=== PATIENT | male | born 1975 | race African-American/Black ===

== ENCOUNTER 2020-12-21 15:48 | Emergency (ER) | payer OTHER ==
[~2020-12-21] VITALS: Ht 185.4 cm; Wt 84.0 kg
[2020-12-21 15:58] VITALS: BP 145/93
[2020-12-21] MEDS ORDERED: AMOX1TAB61 PO (16:08)
[2020-12-21] MEDS ORDERED: HYDR-2155 PO (16:08)
--- NOTE | 2020-12-21 16:12 | PHYS DOC ---
General Adult EDM: Chief Complaint: DENTAL PROBLEM HPI: HPI: Patient is a 45-year-old male who presents to the ER for dental pain. Patient reports that he does not have a dentist. He denies any trouble breathing, trouble swallowing, fevers. He rates his pain 7 out of 10. He has been using salt water gargles and Orajel without any relief. (DEEPAK VALADEZ APRN) Review of Systems: Review of Systems: 14 body systems of the review of systems have been reviewed. See HPI for pertinent positive and negative responses, otherwise all other systems are negative, nonpertinent or noncontributory (DEEPAK VALADEZ APRN) Physical Exam: PE: Constitutional: Well developed, well nourished, no acute distress, non-toxic appearance. [] HENT: Normocephalic, atraumatic, bilateral external ears normal, oropharynx tati st, no oral exudates, nose normal, uvula midline, no trismus, several broken teeth and dental caries, no abscess noted, mild upper swelling of gums [] Eyes: PERRL, EOMI, conjunctiva normal, no discharge. [] Neck: Normal range of motion, no stridor Cardiovascular: Normal peripheral perfusion Lungs & Thorax: Normal work of breathing, no tachypnea Abdomen: Bowel sounds normal, soft, no tenderness, no masses, no pulsatile masses. [] Skin: Warm, dry, no erythema, no rash. [] Back: Normal range of motion Extremities: No tenderness, no cyanosis, no clubbing, ROM intact, no edema. [] Neurologic: Alert and oriented X 3, normal motor function, normal sensory function, no focal deficits noted. [] Psychologic: Affect normal, judgement normal, mood normal. [] (DEEPAK VALADEZ APRN) EKG: EKG: [] (DEEPAK VALADEZ APRN) Radiology/Procedures: Radiology/Procedures: [] (DEEPAK VALADEZ APRN) Heart Score: C/O Chest Pain: No Risk Factors: Risk Factors: DM, Current or recent (<one month) smoker, HTN, HLP, family history of CAD, obesity. Risk Scores: Score 0 - 3: 2.5% MACE over next 6 weeks - Discharge Home Score 4 - 6: 20.3% MACE over next 6 weeks - Admit for Clinical Observation Score 7 - 10: 72.7% MACE over next 6 weeks - Early Invasive Strategies (DEEPAK VALADEZ APRN) Course & Med Decision Making: Course & Med Decision Making Pertinent Labs and Imaging studies reviewed. (See chart for details) [] Patient is a 45-year-old male being seen in the ER for dental pain. Patient does not have a identifiable abscess but he does have swelling of his gums and several broken teeth with dental caries. Patient does not have a dentist. He was provided a clinic list. Patient given pain medication and antibiotic. Patient follow-up with his primary care provider and dentist. I discussed with patient all findings as well as the need to follow-up with PCP for further evaluation and treatment or return to the ER if any new or worsening symptoms. Strict return precautions were also discussed at length. Patient voiced understanding and agreement with the plan. Patient is hemodynamically stable at the time of disposition. (DEEPAK VALADEZ APRN) Dragon Disclaimer: Dragon Disclaimer: This electronic medical record was generated, in whole or in part, using a voice recognition dictation system. (DEEPAK VALADEZ APRN) Attending Co-Sign The patient was seen and interviewed as well as examined at the bedside. The chart was reviewed. The case was discussed. Agree with the plan of care. (DUDLEY YANCEY DO) Departure Departure: Impression: Primary Impression: Pain due to dental caries Additional Impression: Infected dental caries Disposition: 01 HOME / SELF CARE / HOMELESS Condition: GOOD Referrals: PCP,NO (PCP) Patient Instructions: Dental Pain Additional Instructions: You are seen in the ER today for dental pain. You have several dental caries and broken teeth. You were treated in the ER with a antibiotic and pain medication. You are also discharged home with prescriptions for these medications he can take as directed. Please make sure you start and finish the antibiotic completely. Follow-up with your primary care provider as needed. You are being discharged home with information regarding dental clinics. Please follow-up with the dental clinic as soon as possible. If you develop worsening of your pain, difficulty breathing or swallowing, high fevers refractory to treatment please return to the ER. EMERGENCY DEPARTMENT GENERAL DISCHARGE INSTRUCTIONS Thank you for coming to [facility] (ED) today and trusting us with you care. We trust that you had a positivie experience in our Emergency Department. If you wish to speak to the department management, you may call the director at [phone]. YOUR FOLLOW UP INSTRUCTIONS ARE FOLLOWS: 1. Do you have a private Doctor? If you do not have a private doctor, please ask for a resource list of physicians or clinics that may be able to assist you with follow up care. 2. The Emergency Physician has interpreted your x-rays. The X-Ray specialist will also review them. If there is a change in the findings, you will be notified in 48 hours when at all possible. 3. A lab test or culture has been done, your results will be reviewed and you will be notified if you need a change in treatment. ADDITIONAL INSTRUCTIONS AND INFORMATION: 1. Your care today has been supervised by a physician who is specially trained in emergency care. Many problems require more than one evaluation for a complete diagnosis and treatment. We recommend that you schedule your follow up appointment as recommended to ensure complete treatment of you illness or injury. If you are unable to obtain follow up care and continue to have a problem, or if your condition worsens, we recommend that you return to the ED. 2. We are not able to safely determine your condition over the phone nor are we able to give sound medical advice over the phone. For these safety reasons, if you call for medical advice we will ask you to come to the ED for further evaluation. 3. If you have any questions regarding these discharge instructions please call the ED at [phone]. SAFETY INFORMATION: In the interest of safety, wellness, and injury prevention; we encourage you to wear your sealbelt, if you smoke; quite smoking, and we encourage family to use a protective helmet for bicycling and other sporting events that present an increased risk for head injury. IF YOUR SYMPTOMS WORSEN OR NEW SYMPTOMS DEVELOP, OR YOU HAVE CONCERNS ABOUT YOUR CONDITION; OR IF YOUR CONDITION WORSENS WHILE YOU ARE WAITING FOR YOUR FOLLOW UP APPOINTMENT; EITHER CONTACT YOUR PRIMARY CARE DOCTOR, THE PHYSICIAN WHOSE NAME AND NUMBER YOU WERE GIVEN, OR RETURN TO THE ED IMMEDIATELY. Scripts Hydrocodone Bit/Acetaminophen (HYDROCODONE-APAP 5-325 ) 1 Each Tablet 1 TAB PO PRN Q6HRS PRN for PAIN for 2 Days, #8 TAB 0 Refills Prov: DEEPAK VALADEZ CONVEYOR FEEDER 12/21/20 Amoxicillin/Potassium Clav (AUGMENTIN 875-125 TABLET) 1 Each Tablet 1 TAB PO BID for dental infection for 7 Days, #14 TAB 0 Refills Prov: DEEPAK VALADEZ APRN 12/21/20 DEEPAK VALADEZ APRN Dec 21, 2020 16:12 DUDLEY YANCEY DO Dec 22, 2020 06:25
[2020-12-21] MEDS ORDERED: HYDROcodone/APAP 5/325MG 1 TAB TABLET PO ONE (16:15)
[2020-12-21] MEDS ORDERED: AMOXICILLIN/K CLAV 875/125MG TABLET. PO ONE (16:15)
== END 2020-12-21 16:45 | disposition home or self-care (01) ==
LOC: ER 15:48
DX: K02.9 Dental caries, unspecified (principal)
CPT/HCPCS: 99283